=== PATIENT | male | born 1960 | race Caucasian/White ===

== ENCOUNTER 2017-04-27 07:48 | Outpatient (CLI) | payer BC ==
--- NOTE | 2017-04-27 09:53 | CT ---
EXAM: LOW DOSE SCREENING LUNG CT: COMPARISON: 12/29/15. HISTORY: Pulmonary nodule screening. Followup nodule from last year. TECHNIQUE: Low-dose screening CT is performed in the axial plane. Images are obtained following institution pro tocol. Coronal reformatted images are submitted for interpretation. FINDINGS: Lung screening specific (Lung RADS): Negative. Minor findings not suspicious for primary lung cancer . There is a stable 2 mm nodule in the left lower lobe. Potential significant incidentals (Lung RADS category S): None. Pulmonary incidentals: A 2 mm nodule in the left lower lobe. This is not suspicious for cancer. Other incidentals: None. IMPRESSION: 1. Lung RADS category 2: negative, benign findings without evidence of malignancy. 2. Lung RADS category S: negative. 3. Followup imaging in 12 months is recommended. Annual screening repeat low-dose CT should be perf ormed. POS: KEISHA
== END 2017-04-27 07:49 | disposition home or self-care (01) ==
LOC: CT 07:48
PROVIDERS: ATTEND Family Medicine
DX: R91.1 Solitary pulmonary nodule (principal); Z87.891 Personal history of nicotine dependence
CPT/HCPCS: G0297

== ENCOUNTER 2017-09-22 16:47 | Outpatient (CLI) | payer BC ==
[2017-09-22 17:10] LABS: Hemoglobin 15.5 g/dL (14.0-18.0); Mean Corpuscular HGB CONC 33.9 g/dL (32.0-36.0); Mean Corpuscular Hemoglobin 30.2 pg (27.0-31.0); Mean Corpuscular Volume 88.8 fl (80.0-94.0); Platelet Count 270 thou/uL (130-400); RBC Distribution Width 12.2 % (11.5-14.5); Red Blood Cell (RBC) Count 5.14 mill/uL (4.70-6.10); White Blood Cell (WBC) Count 8.9 thou/uL (4.8-10.8)
[2017-09-22 17:14] LABS: INR-International Normal Ratio 1.2; PTT 35.1 SEC (22.9-36.1)
[2017-09-22 17:27] LABS: ALT (SGPT) 30 U/L (8-55); AST (SGOT) 23 U/L (5-34); Albumin 4.8 g/dL (3.5-5.0); Alkaline Phosphatase 65 U/L (40-150); Anion Gap 13 mmol/L (10-20); BUN (Urea Nitrogen) 14 mg/dL (8.4-25.7); Bilirubin, Total 0.9 mg/dL (0.2-1.2); Calc. Creatinine Clearance 0 mL/min (70-130); Carbon Dioxide 24 mmol/L (22-29); Chloride 105 mmol/L (98-107); Estimated GFR-MDRD 40; Globulin 2.8 g/dL (2.4-3.5); Glucose 100 mg/dL (70-105); Potassium 4.1 mmol/L (3.5-5.1); Protein, Total 7.6 g/dL (6.0-8.3); Sodium 138 mmol/L (136-145)
== END 2017-09-22 16:48 | disposition home or self-care (01) ==
LOC: LABBT 16:47
PROVIDERS: ATTEND Internal Medicine Cardiovascular Disease
DX: Z01.818 Encounter for other preprocedural examination (principal); R06.02 Shortness of breath; R07.9 Chest pain, unspecified
CPT/HCPCS: 80053; 85027; 85610; 85730; 93005; 93010

== ENCOUNTER 2017-09-27 06:16 | Day surgery (SDC) | payer BC ==
[2017-09-22 17:04] VITALS: BMI 27.3
[2017-09-27] MEDS ORDERED: Lidocaine 1% (PF) 30 ML VIAL ONE (06:35)
[2017-09-27] MEDS ORDERED: Diazepam 5 MG TAB ONE (07:22)
[2017-09-27 07:47] LABS: Anion Gap 11 mmol/L (10-20); BUN (Urea Nitrogen) 16 mg/dL (8.4-25.7); Calc. Creatinine Clearance 67 mL/min (70-130); Calcium 8.8 mg/dL (7.8-10.44); Carbon Dioxide 23 mmol/L (22-29); Cardiac Risk 6.3 (Less than 4.5); Chloride 107 mmol/L (98-107); Cholesterol 169 mg/dl (< 200 Desired); Estimated GFR-MDRD 45; Glucose 94 mg/dL (70-105); HDL Cholesterol 27 mg/dL (>60 Neg Risk); LDL Cholesterol, Calculated 114 mg/dL; Sodium 137 mmol/L (136-145); Triglycerides 141 mg/dL (Less than 150)
[2017-09-27] MEDS ORDERED: Heparin 10,000 UNITS/1 ML VIAL ONE (08:16)
[2017-09-27] MEDS ORDERED: Verapamil 5 MG/2 ML VIAL ONE (08:16)
[2017-09-27] MEDS ORDERED: Nitroglycerin 100MG/250ML BOT 250 ML ONE (08:16)
[2017-09-27] MEDS ORDERED: Midazolam HCl 2 mg/2 ml Vial ONE (08:23)
[2017-09-27] MEDS ORDERED: Fentanyl 100 MCG/2 ML VIAL ONE (08:23)
[2017-09-27] MEDS ORDERED: Iopamidol 370 76% 100 ML VIAL ONE (11:17)
== END 2017-09-27 11:30 | disposition home or self-care (01) ==
LOC: CCL 06:16
PROVIDERS: ATTEND Internal Medicine Cardiovascular Disease
PROC: 4A023N7 Measurement of Cardiac Sampling and Pressure, Left Heart, Percutaneous Approach (ICD-10-PCS; principal; 2017-09-27)
PROC: B2111ZZ Fluoroscopy of Multiple Coronary Arteries using Low Osmolar Contrast (ICD-10-PCS; principal; 2017-09-27)
DX: I25.118 Atherosclerotic heart disease of native coronary artery with other forms of angina pectoris (principal); F17.210 Nicotine dependence, cigarettes, uncomplicated; I10 Essential (primary) hypertension; E78.5 Hyperlipidemia, unspecified; Z79.82 Long term (current) use of aspirin; Z79.899 Other long term (current) drug therapy
CPT/HCPCS: 36415; 80048; 80061; 93458; 99152; C1769; J1644; J2001; J2250; J3010

== ENCOUNTER 2017-10-17 07:56 | Outpatient (CLI) | payer BC | END 2017-10-17 07:57 | disposition home or self-care (01) | LOC: CP 07:56 | PROVIDERS: ATTEND Family Medicine | DX: R06.02 Shortness of breath (principal) | CPT/HCPCS: 94060; 94727 ==

== ENCOUNTER 2018-05-08 07:13 | Outpatient (CLI) | payer BC ==
--- NOTE | 2018-05-08 10:13 | CT ---
CT CHEST WITHOUT CONTRAST: HISTORY: Pulmonary nodule. Low dose cancer screening protocol. 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 COMPARISON: 04/27/2017, 12/29/2015 TECHNIQUE: Multiple contiguous axial images were obtained in a CT chest without contrast, per low dose cancer sc reening protocol. Sagittal and coronal reformats were performed. FINDINGS: There is a stable 2 mm nodule in the superior aspect of the left lower lobe on image 43 of 70. No ot her pulmonary nodules are seen. No focal infiltrates are seen. No pneumothorax or pleural effusion is seen. The heart is normal in size without focal cardiac abnormality. No hilar or mediastinal lymphadenopat hy is seen. The visualized subdiaphragmatic structures and chest wall soft tissues are unremarkable. The bones a re unremarkable. IMPRESSION: Lung-RADS category 2-Benign. CODE LN POS: KEISHA
== END 2018-05-08 07:14 | disposition home or self-care (01) ==
LOC: CT 07:13
PROVIDERS: ATTEND Family Medicine
DX: Z87.891 Personal history of nicotine dependence (principal); R91.1 Solitary pulmonary nodule
CPT/HCPCS: G0297

== ENCOUNTER 2019-11-18 07:38 | Outpatient (CLI) | payer BC ==
--- NOTE | 2019-11-18 08:38 | CT ---
CT pulmonary lung scan without IV contrast INDICATION: Lung cancer screening protocol; follow-up pulmonary nodule; former smoker for 30 years; s moked 1 pack per day; stop smoking 10 years ago;history of asthma COMPARISON: CT pulmonary lung scan dated May 08, 2018 FINDINGS: LUNGS: Nodules\mass: No suspicious nodule demonstrated. Small 2 mm nodule is calcified in the left lower lob e on image 176 of series 2 consistent with a small granuloma. Emphysema: Mild scattered emphysema is stable. Additional findings: None. Mediastinum: No lymphadenopathy. Upper abdomen: No abnormality. Osseous structures: No acute abnormality.. IMPRESSION: Lung-RADS Category 2: Benign- Continue annual screening with LDCT in 12 months Category S: Mild emphysema. Findings of prior granulomatous disease. Category C: Not applicable.
== END 2019-11-18 07:39 | disposition home or self-care (01) ==
LOC: CT 07:38
PROVIDERS: ATTEND Family Medicine
DX: Z12.2 Encounter for screening for malignant neoplasm of respiratory organs (principal); Z87.891 Personal history of nicotine dependence; R91.1 Solitary pulmonary nodule; J43.9 Emphysema, unspecified
CPT/HCPCS: G0297

== ENCOUNTER 2021-04-04 06:20 | Emergency (ER) | payer BC, SELFPAY ==
[2021-04-04 07:01] LABS: #Basophils 0.1 thou/uL (0.0-0.2); #Eosinphils 0.1 thou/uL (0.0-0.7); #Lymphocytes 1.3 thou/uL (1.20-3.40); #Monocytes 0.4 thou/uL (0.11-0.59); #Neutrophils 7.1 thou/uL (1.40-6.50); %Basophils 0.7 % (0.0-1.0); %Eosinophils 1.6 % (0.0-10.0); %Lymphocytes 13.8 % (21.0-51.0); %Monocytes 4.9 % (0.0-10.0); Hemoglobin 16.4 g/dL (14.0-18.0); Mean Corpuscular HGB CONC 33.4 g/dL (32.0-36.0); Mean Corpuscular Hemoglobin 31.1 pg (27.0-31.0); Platelet Count 222 thou/uL (130-400); RBC Distribution Width 12.2 % (11.5-14.5); Red Blood Cell (RBC) Count 5.27 mill/uL (4.70-6.10)
[2021-04-04 07:22] LABS: ALT (SGPT) 28 U/L (8-55); AST (SGOT) 27 U/L (5-34); Albumin 4.3 g/dL (3.5-5.0); Alkaline Phosphatase 53 U/L (40-110); Anion Gap 13 mmol/L (10-20); BUN (Urea Nitrogen) 21 mg/dL (8.4-25.7); Bilirubin, Total 0.7 mg/dL (0.2-1.2); Calc. Creatinine Clearance 0 mL/min (70-130); Carbon Dioxide 24 mmol/L (22-29); Chloride 106 mmol/L (98-107); Globulin 2.8 g/dL (2.4-3.5); Glucose 165 mg/dL (70-105); Lipase 55 U/L (8-78); Potassium 4.3 mmol/L (3.5-5.1); Protein, Total 7.1 g/dL (6.0-8.3); Sodium 139 mmol/L (136-145)
[2021-04-04 10:17] LABS: Clarity Cloudy (Clear); Glucose, Urine (Dipstick) Unable to Interpret mg/dL (Negative); Ketone, Urine Unable to Interpret mg/dL (Negative); Leukocyte Unable to Interpret Leu/uL (Negative); Nitrite Unable to Interpret (Negative); Protein, Urine (Dipstick) Unable to Interpret mg/dL (Neg-Trace); Specific Gravity, Urine 1.013 (1.002-1.036); pH, Urine 6.3 (5.0-9.0)
[2021-04-04 10:18] LABS: Bacteria/HPF Rare-Few HPF (None Seen); Bilirubin Unable to Interpret (Negative); Blood, Urine Unable to Interpret (Negative); RBC/HPF Greater than 50 HPF (0-3); Squamous Epithelial 0-3 HPF (0-3); Urobilinogen UNABLE TO INTERPRET mg/dL (Less than 2); WBC/HPF 0-3 HPF (0-3)
[2021-04-04] MEDS ORDERED: Lidocaine 2% PF 5 ML VIAL ONE (10:26)
== END 2021-04-04 11:10 | disposition home or self-care (01) ==
LOC: ERS 06:20
DX: N17.9 Acute kidney failure, unspecified (principal); F17.290 Nicotine dependence, other tobacco product, uncomplicated
CPT/HCPCS: 36415; 51702; 80053; 81003; 81015; 83690; 85025; J2001

== ENCOUNTER 2021-05-12 04:06 | Inpatient (IN) | payer OTHER, SELFPAY ==
[2021-05-12 05:20] LABS: Hemoglobin 15.8 g/dL (14.0-18.0); Mean Corpuscular HGB CONC 34.5 g/dL (32.0-36.0); Mean Corpuscular Hemoglobin 31.1 pg (27.0-31.0); Mean Corpuscular Volume 90.2 fL (78.0-98.0); Mean Platelet Volume 8.1 fL (7.4-10.4); Platelet Count 228 thou/uL (130-400); RBC Distribution Width 11.7 % (11.5-14.5); Red Blood Cell (RBC) Count 5.09 mill/uL (4.70-6.10); White Blood Cell (WBC) Count 20.5 thou/uL (4.8-10.8)
[2021-05-12 05:32] LABS: ALT (SGPT) 25 U/L (8-55); AST (SGOT) 22 U/L (5-34); Albumin 4.4 g/dL (3.5-5.0); Alkaline Phosphatase 48 U/L (40-110); Anion Gap 12 mmol/L (10-20); BUN (Urea Nitrogen) 19 mg/dL (8.4-25.7); Bilirubin, Total 0.9 mg/dL (0.2-1.2); Calc. Creatinine Clearance 0 mL/min (70-130); Carbon Dioxide 23 mmol/L (22-29); Chloride 103 mmol/L (98-107); Globulin 2.8 g/dL (2.4-3.5); Glucose 123 mg/dL (70-105); Lipase 44 U/L (8-78); Magnesium 1.6 mg/dL (1.6-2.6); Potassium 4.1 mmol/L (3.5-5.1); Protein, Total 7.2 g/dL (6.0-8.3); Sodium 134 mmol/L (136-145)
[2021-05-12 05:44] LABS: Band 35 % (5-11); Lymphocytes 5 % (21-51); MDiff Complete? YES; Monocytes 7 % (0-10); Neutrophil 53 % (42-75); Platelet Morphology Comment Appears Adequate; RBC Morphology Normal
[2021-05-12] MEDS ORDERED: Morphine 4 MG/ML VIAL ONE ×2 (05:48→09:35)
[2021-05-12] MEDS ORDERED: Ketorolac Tromethamine 30 MG/ML VIAL ONE (05:49)
[2021-05-12] MEDS ORDERED: Vancomycin 1 GM/200 ML BAG ONE (07:05)
[2021-05-12 07:45] LABS: Bacteria/HPF 2+ HPF (None Seen); Bilirubin Negative (Negative); Blood, Urine 3+ (Negative); Clarity Turbid (Clear); Glucose, Urine (Dipstick) Normal (Negative); Ketone, Urine Negative (Negative); Leukocyte 500 Leu/uL (Negative); Nitrite 2+ (Negative); Protein, Urine (Dipstick) 30 mg/dL (Neg-Trace); RBC/HPF Greater than 50 HPF (0-3); Specific Gravity, Urine 1.018 (1.002-1.036); Squamous Epithelial None Seen HPF (0-3); Urobilinogen Normal mg/dL (Less than 2); WBC/HPF Greater than 50 HPF (0-3)
[2021-05-12] MEDS ORDERED: cefTRIAXone\\ROCEPHIN 1 GM VIAL ONE (08:02)
[2021-05-12 11:57] LABS: SARS-CoV-2 NAA Rapid Test Not Detected (NotDetected)
[2021-05-12 13:14] VITALS: BMI 27.7
[2021-05-12] MEDS ORDERED: Sodium Chloride 0.9% 1,000 ML IV SCH (13:15)
[2021-05-12] MEDS ORDERED: Vancomycin 1 GM in Premix Bag 1 BAG IVPB SCH (16:00)
[2021-05-12] MEDS ORDERED: cefTRIAXone\\ROCEPHIN 1 GM in Sodium Chloride 0.9% 100 ML IVPB SCH (18:00)
[2021-05-12] MEDS: Acetaminophen 325 MG TAB PO PRN (21:05)
[2021-05-13] MEDS: Sodium Chloride 0.9% 1,000 ML IV SCH ×4 (01:08→16:09)
[2021-05-13] MEDS: Acetaminophen 325 MG TAB PO PRN ×3 (05:36→16:58)
[2021-05-13] MEDS ORDERED: Meropenem 1 GM in Sodium Chloride 0.9% 100 ML IVPB SCH (09:00)
[2021-05-13] MEDS ORDERED: Vancomycin 1.5 GRAM/300 ML BAG 1.5 GM in Premix Bag 1 BAG IVPB SCH (09:00)
[2021-05-13] MEDS: Fenofibrate Nanocrystallized 145 MG TAB PO SCH (09:53)
[2021-05-13] MEDS: Meropenem 1 GM in Sodium Chloride 0.9% 100 ML IVPB SCH (16:58)
[2021-05-13] MEDS ORDERED: Meropenem 500 MG in Sodium Chloride 0.9% 100 ML IVPB SCH (17:00)
[2021-05-13] MEDS: Senokot S 8.6-50 MG TAB PO SCH (20:42)
[2021-05-13] MEDS: HYDROcodone/Acetaminophen 5/325 mg Tablet PO PRN (20:43)
[2021-05-13] MEDS: Ondansetron PF 4 MG/2 ML Vial IVP PRN (20:44)
[2021-05-14] MEDS: Sodium Chloride 0.9% 1,000 ML IV SCH ×3 (02:00→12:44)
[2021-05-14] MEDS: Acetaminophen 325 MG TAB PO PRN (05:03)
[2021-05-14] MEDS: Meropenem 1 GM in Sodium Chloride 0.9% 100 ML IVPB SCH ×2 (05:04→16:50)
[2021-05-14] MEDS: Levothyroxine Sodium 88 MCG TAB PO SCH (05:04)
[2021-05-14 07:07] LABS: #Eosinphils 0.1 thou/uL (0.0-0.7); #Lymphocytes 1.4 thou/uL (1.20-3.40); #Monocytes 1.1 thou/uL (0.11-0.59); %Basophils 0.3 % (0.0-1.0); %Eosinophils 0.5 % (0.0-10.0); %Lymphocytes 7.9 % (21.0-51.0); %Monocytes 6.1 % (0.0-10.0); %Neutrophils 85.2 % (42.0-75.0); Hemoglobin 12.6 g/dL (14.0-18.0); Mean Corpuscular HGB CONC 33.3 g/dL (32.0-36.0); Mean Corpuscular Hemoglobin 30.9 pg (27.0-31.0); Mean Corpuscular Volume 92.8 fL (78.0-98.0); Mean Platelet Volume 8.3 fL (7.4-10.4); Platelet Count 211 thou/uL (130-400); RBC Distribution Width 11.8 % (11.5-14.5); Red Blood Cell (RBC) Count 4.09 mill/uL (4.70-6.10); White Blood Cell (WBC) Count 17.6 thou/uL (4.8-10.8)
[2021-05-14 07:29] LABS: Anion Gap 10 mmol/L (10-20); Calcium 8.8 mg/dL (7.8-10.44); Carbon Dioxide 21 mmol/L (22-29); Chloride 106 mmol/L (98-107); Glucose 104 mg/dL (70-105); Potassium 3.6 mmol/L (3.5-5.1); Sodium 133 mmol/L (136-145)
[2021-05-14 07:34] LABS: Calc. Creatinine Clearance 69 mL/min (70-130)
[2021-05-14 07:35] LABS: BUN (Urea Nitrogen) 13 mg/dL (8.4-25.7)
[2021-05-14] MEDS: Ondansetron PF 4 MG/2 ML Vial IVP PRN (08:45)
[2021-05-14] MEDS: Fenofibrate Nanocrystallized 145 MG TAB PO SCH (10:23)
[2021-05-14] MEDS: Senokot S 8.6-50 MG TAB PO SCH ×2 (10:24→20:56)
[2021-05-15] MEDS: Acetaminophen 325 MG TAB PO PRN (04:12)
[2021-05-15] MEDS: Meropenem 1 GM in Sodium Chloride 0.9% 100 ML IVPB SCH ×3 (04:14→17:52)
[2021-05-15] MEDS: Levothyroxine Sodium 88 MCG TAB PO SCH (05:31)
[2021-05-15 06:22] LABS: #Eosinphils 0.1 thou/uL (0.0-0.7); #Lymphocytes 1.5 thou/uL (1.20-3.40); #Monocytes 1.1 thou/uL (0.11-0.59); #Neutrophils 10.3 thou/uL (1.40-6.50); %Basophils 0.3 % (0.0-1.0); %Eosinophils 0.4 % (0.0-10.0); %Lymphocytes 11.7 % (21.0-51.0); %Monocytes 8.2 % (0.0-10.0); %Neutrophils 79.4 % (42.0-75.0); Mean Corpuscular HGB CONC 34.1 g/dL (32.0-36.0); Mean Corpuscular Hemoglobin 31.1 pg (27.0-31.0); Mean Corpuscular Volume 91.1 fL (78.0-98.0); Mean Platelet Volume 8.2 fL (7.4-10.4); Platelet Count 247 thou/uL (130-400); RBC Distribution Width 11.6 % (11.5-14.5); Red Blood Cell (RBC) Count 4.17 mill/uL (4.70-6.10)
[2021-05-15 06:50] LABS: Anion Gap 12 mmol/L (10-20); BUN (Urea Nitrogen) 12 mg/dL (8.4-25.7); Calc. Creatinine Clearance 77 mL/min (70-130); Calcium 9.1 mg/dL (7.8-10.44); Carbon Dioxide 21 mmol/L (22-29); Chloride 108 mmol/L (98-107); Glucose 101 mg/dL (70-105); Potassium 3.5 mmol/L (3.5-5.1); Sodium 137 mmol/L (136-145)
[2021-05-15] MEDS: Ondansetron PF 4 MG/2 ML Vial IVP PRN (08:20)
[2021-05-15] MEDS: HYDROcodone/Acetaminophen 5/325 mg Tablet PO PRN (08:26)
[2021-05-15] MEDS: Fenofibrate Nanocrystallized 145 MG TAB PO SCH (08:27)
[2021-05-15] MEDS: Senokot S 8.6-50 MG TAB PO SCH ×2 (08:28→20:33)
[2021-05-15] MEDS ORDERED: Fioricet 325/50/40 mg Tablet PO SCH (09:45)
[2021-05-15] MEDS ORDERED: Fluticasone Propionate Nasal Spray 16 gm Bottle NASAL SCH (10:15)
[2021-05-15] MEDS ORDERED: Loratadine 10 MG TAB PO SCH (10:15)
[2021-05-15] MEDS: Fioricet 325/50/40 mg Tablet PO PRN ×2 (16:57→20:35)
[2021-05-15] MEDS: Fluticasone Propionate Nasal Spray 16 gm Bottle NASAL SCH (20:38)
[2021-05-16] MEDS: Levothyroxine Sodium 88 MCG TAB PO SCH (05:05)
[2021-05-16] MEDS: Meropenem 1 GM in Sodium Chloride 0.9% 100 ML IVPB SCH ×2 (05:05→16:49)
[2021-05-16] MEDS: Fioricet 325/50/40 mg Tablet PO PRN ×3 (05:06→20:28)
[2021-05-16 07:43] LABS: #Basophils 0.1 thou/uL (0.0-0.2); #Eosinphils 0.1 thou/uL (0.0-0.7); #Lymphocytes 1.9 thou/uL (1.20-3.40); #Monocytes 0.9 thou/uL (0.11-0.59); #Neutrophils 6.6 thou/uL (1.40-6.50); %Basophils 0.8 % (0.0-1.0); %Eosinophils 1.1 % (0.0-10.0); %Lymphocytes 19.7 % (21.0-51.0); %Monocytes 9.4 % (0.0-10.0); %Neutrophils 69.1 % (42.0-75.0); Hemoglobin 13.2 g/dL (14.0-18.0); Mean Corpuscular HGB CONC 33.4 g/dL (32.0-36.0); Mean Corpuscular Volume 92.9 fL (78.0-98.0); Platelet Count 278 thou/uL (130-400); RBC Distribution Width 11.9 % (11.5-14.5); Red Blood Cell (RBC) Count 4.27 mill/uL (4.70-6.10); White Blood Cell (WBC) Count 9.5 thou/uL (4.8-10.8)
[2021-05-16] MEDS: Fenofibrate Nanocrystallized 145 MG TAB PO SCH (08:39)
[2021-05-16] MEDS: Loratadine 10 MG TAB PO SCH (08:39)
[2021-05-16] MEDS: Fluticasone Propionate Nasal Spray 16 gm Bottle NASAL SCH ×2 (08:39→20:29)
[2021-05-16] MEDS: Senokot S 8.6-50 MG TAB PO SCH ×2 (08:39→20:29)
[2021-05-16] MEDS: Lisinopril 10 MG TAB PO SCH (08:39)
[2021-05-17] MEDS: Meropenem 1 GM in Sodium Chloride 0.9% 100 ML IVPB SCH (06:17)
[2021-05-17] MEDS: Levothyroxine Sodium 88 MCG TAB PO SCH (06:17)
[2021-05-17] MEDS: Senokot S 8.6-50 MG TAB PO SCH (08:25)
[2021-05-17] MEDS: Fenofibrate Nanocrystallized 145 MG TAB PO SCH (08:25)
[2021-05-17] MEDS: Lisinopril 10 MG TAB PO SCH (08:25)
[2021-05-17] MEDS: Loratadine 10 MG TAB PO SCH (08:26)
[2021-05-17] MEDS: Fluticasone Propionate Nasal Spray 16 gm Bottle NASAL SCH (08:26)
[2021-05-17 08:28] VITALS: BP 132/76
[2021-05-17] MEDS ORDERED: Morphine 4 MG/ML VIAL SLOW IVP PRN (08:37)
[2021-05-17 08:39] VITALS: TEMP 97.9
[2021-05-17 08:53] LABS: Anion Gap 11 mmol/L (10-20); BUN (Urea Nitrogen) 12 mg/dL (8.4-25.7); Calc. Creatinine Clearance 77 mL/min (70-130); Calcium 9.5 mg/dL (7.8-10.44); Carbon Dioxide 27 mmol/L (22-29); Chloride 107 mmol/L (98-107); Glucose 114 mg/dL (70-105); Potassium 3.7 mmol/L (3.5-5.1); Sodium 141 mmol/L (136-145)
== END 2021-05-17 12:14 | disposition home or self-care (01) | DRG 698 ==
LOC: ERS 04:06 → ERHOLD 07:56 → T4-A 12:50
PROVIDERS: ADMIT Family Medicine; ATTEND Family Medicine
PROC: 0T7D8ZZ Dilation of Urethra, Via Natural or Artificial Opening Endoscopic (ICD-10-PCS; principal; 2021-05-17)
DX: T83.510A Infection and inflammatory reaction due to cystostomy catheter, initial encounter (principal); A41.52 Sepsis due to Pseudomonas; N10 Acute pyelonephritis; N13.8 Other obstructive and reflux uropathy; Z20.822 Contact with and (suspected) exposure to COVID-19; I10 Essential (primary) hypertension; E03.9 Hypothyroidism, unspecified; J45.909 Unspecified asthma, uncomplicated; N13.9 Obstructive and reflux uropathy, unspecified; N40.1 Benign prostatic hyperplasia with lower urinary tract symptoms; R09.81 Nasal congestion; Z79.890 Hormone replacement therapy; Z79.899 Other long term (current) drug therapy; Z79.51 Long term (current) use of inhaled steroids
CPT/HCPCS: 36415; 74176; 80048; 80053; 81003; 81015; 83605; 83690; 83735; 85025; 87040; 87077; 87086; 87149; 87186; 94640; 96365; 96367; 96375; 96376; J0696; J1885; J2185; J2270; J2405; J3370; J3490; J7050; J7620; U0002

== ENCOUNTER 2021-05-20 11:32 | Outpatient (CLI) | payer SELFPAY, OTHER ==
[2021-05-20 22:43] LABS: SARS-CoV-2 PCR by NAA Not Detected (NotDetected)
== END 2021-05-20 11:33 | disposition home or self-care (01) ==
LOC: LABBT 11:32
PROVIDERS: ATTEND Urology
DX: Z01.818 Encounter for other preprocedural examination (principal); Z20.822 Contact with and (suspected) exposure to COVID-19
CPT/HCPCS: 93005; 93010; U0003; U0005

== ENCOUNTER 2021-05-25 09:00 | Day surgery (SDC) | payer OTHER ==
[2021-05-20 12:51] VITALS: BMI 26.7
[2021-05-25] MEDS ORDERED: Levofloxacin 500 mg/D5W 100 ml Premix Bag ONE (09:15)
[2021-05-25] MEDS ORDERED: Triamcinolone 40 MG/ML VIAL ONE (10:04)
[2021-05-25] MEDS ORDERED: Iothalamate Meglumine 60% 50 ML VIAL FS ONE (10:04)
[2021-05-25] MEDS ORDERED: Fentanyl 100 MCG/2 ML VIAL ONE (10:05)
[2021-05-25] MEDS ORDERED: Lidocaine 1% PF 5 ML VIAL ONE (10:13)
[2021-05-25] MEDS ORDERED: Phenylephrine 10 MG/ML VIAL ONE (10:13)
[2021-05-25] MEDS ORDERED: Dexamethasone 20 MG/5 ML VIAL ONE (10:13)
[2021-05-25] MEDS ORDERED: Ondansetron PF 4 MG/2 ML Vial ONE (10:13)
[2021-05-25] MEDS ORDERED: PROPOFOL 200 MG/20 ML VIAL ONE (10:13)
[2021-05-25] MEDS ORDERED: Oxybutynin 5 MG TAB ONE (12:16)
[2021-05-25] MEDS ORDERED: Phenazopyridine HCl 100 MG TAB ONE (12:16)
[2021-05-25] MEDS ORDERED: Ketorolac Tromethamine 30 MG/ML VIAL ONE (12:16)
== END 2021-05-25 13:04 | disposition home or self-care (01) ==
LOC: SDC 09:00
PROVIDERS: ATTEND Urology
PROC: 0TCB8ZZ Extirpation of Matter from Bladder, Via Natural or Artificial Opening Endoscopic (ICD-10-PCS; principal; 2021-05-25)
PROC: 3E0K83Z Introduction of Anti-inflammatory into Genitourinary Tract, Via Natural or Artificial Opening Endoscopic (ICD-10-PCS; principal; 2021-05-25)
PROC: 0TND8ZZ Release Urethra, Via Natural or Artificial Opening Endoscopic (ICD-10-PCS; principal; 2021-05-25)
DX: N35.912 Unspecified bulbous urethral stricture, male (principal); N21.0 Calculus in bladder; N32.89 Other specified disorders of bladder; I12.9 Hypertensive chronic kidney disease with stage 1 through stage 4 chronic kidney disease, or unspecified chronic kidney disease; N18.2 Chronic kidney disease, stage 2 (mild); E78.00 Pure hypercholesterolemia, unspecified; E03.9 Hypothyroidism, unspecified; E55.9 Vitamin D deficiency, unspecified; J45.909 Unspecified asthma, uncomplicated; F17.290 Nicotine dependence, other tobacco product, uncomplicated; N40.1 Benign prostatic hyperplasia with lower urinary tract symptoms; R33.8 Other retention of urine; Z79.2 Long term (current) use of antibiotics; Z79.899 Other long term (current) drug therapy
CPT/HCPCS: J1100; J1885; J1956; J2370; J2405; J2704; J3010; J3301; Q9961-U8

== ENCOUNTER 2021-06-12 02:58 | Emergency (ER) | payer BC, OTHER ==
[2021-06-12 03:35] LABS: #Basophils 0.1 thou/uL (0.0-0.2); #Eosinphils 0.3 thou/uL (0.0-0.7); #Lymphocytes 2.6 thou/uL (1.20-3.40); #Monocytes 0.6 thou/uL (0.11-0.59); #Neutrophils 4.6 thou/uL (1.40-6.50); %Basophils 0.8 % (0.0-1.0); %Eosinophils 4.2 % (0.0-10.0); %Lymphocytes 31.5 % (21.0-51.0); %Monocytes 7.8 % (0.0-10.0); %Neutrophils 55.7 % (42.0-75.0); Hemoglobin 15.4 g/dL (14.0-18.0); Mean Corpuscular HGB CONC 33.3 g/dL (32.0-36.0); Mean Corpuscular Hemoglobin 30.6 pg (27.0-31.0); Mean Corpuscular Volume 91.8 fL (78.0-98.0); Mean Platelet Volume 8.4 fL (7.4-10.4); Platelet Count 209 thou/uL (130-400); Red Blood Cell (RBC) Count 5.02 mill/uL (4.70-6.10); White Blood Cell (WBC) Count 8.2 thou/uL (4.8-10.8)
[2021-06-12 03:51] LABS: ALT (SGPT) 28 U/L (8-55); AST (SGOT) 22 U/L (5-34); Albumin 4.1 g/dL (3.4-4.8); Alkaline Phosphatase 49 U/L (40-110); Anion Gap 14 mmol/L (10-20); BUN (Urea Nitrogen) 24 mg/dL (8.4-25.7); Bilirubin, Total 0.6 mg/dL (0.2-1.2); Calc. Creatinine Clearance 0 mL/min (70-130); Calcium 9.7 mg/dL (7.8-10.44); Carbon Dioxide 21 mmol/L (23-31); Chloride 105 mmol/L (98-107); Globulin 2.9 g/dL (2.4-3.5); Glucose 129 mg/dL (80-115); Potassium 4.1 mmol/L (3.5-5.1); Sodium 136 mmol/L (136-145)
[2021-06-12 06:30] LABS: Troponin I Less than 0.010 ng/mL (< 0.028)
== END 2021-06-12 06:45 | disposition home or self-care (01) ==
LOC: ERS 02:58
DX: R07.89 Other chest pain (principal); E78.00 Pure hypercholesterolemia, unspecified; I10 Essential (primary) hypertension; F17.290 Nicotine dependence, other tobacco product, uncomplicated; Z79.899 Other long term (current) drug therapy
CPT/HCPCS: 36415; 71045; 80053; 84484; 85025; 93005

== ENCOUNTER 2021-07-07 13:11 | Outpatient (CLI) | payer BC | END 2021-07-07 13:12 | disposition home or self-care (01) | LOC: BICCT 13:11 | PROVIDERS: ATTEND Family Medicine | DX: Z12.2 Encounter for screening for malignant neoplasm of respiratory organs (principal); Z87.891 Personal history of nicotine dependence | CPT/HCPCS: 71271 ==

== ENCOUNTER 2021-07-26 13:36 | Outpatient (CLI) | payer BC ==
[2021-07-26 16:00] LABS: Hemoglobin 15.4 g/dL (13.5-17.5); Mean Corpuscular Hemoglobin 29.8 pg (27.0-33.0); Mean Corpuscular Volume 90.3 fl (81.2-95.1); Mean Platelet Volume 11.4 fl (7.4-10.4); Platelet Count 310 10x3/uL (150-450); RBC Distribution Width 13.9 % (11.5-14.5); Red Blood Cell (RBC) Count 5.16 10x6/uL (4.32-5.72); White Blood Cell (WBC) Count 6.5 10x3/uL (3.5-10.5)
[2021-07-26 16:04] LABS: Bilirubin Neg (Negative); Blood, Urine Negative (Negative); Clarity Clear (Clear); Glucose, Urine (Dipstick) Normal (Negative); Ketone, Urine Negative (Negative); Leukocyte 100 (Negative); Nitrite Negative (Negative); Protein, Urine (Dipstick) Negative (Neg-Trace); Urobilinogen Normal mg/dL (Less than 2)
[2021-07-26 16:25] LABS: RBC/HPF 0-3 HPF (0-3)
[2021-07-26 16:26] LABS: Squamous Epithelial 0-3 HPF (0-3)
[2021-07-26 16:27] LABS: Bacteria/HPF 2+ HPF (None Seen); Mucous/LPF 1+ LPF (<2+)
[2021-07-26 16:32] LABS: Anion Gap 15 mmol/L (10-20); BUN (Urea Nitrogen) 12 mg/dL (8.4-25.7); Calc. Creatinine Clearance 0 mL/min (70-130); Calcium 9.8 mg/dL (7.8-10.44); Carbon Dioxide 24 mmol/L (23-31); Chloride 104 mmol/L (98-107); Glucose 92 mg/dL (80-115); Potassium 4.3 mmol/L (3.5-5.1); Sodium 139 mmol/L (136-145)
[2021-07-26 23:37] LABS: SARS-CoV-2 PCR by NAA Not Detected (NotDetected)
== END 2021-07-26 13:37 | disposition home or self-care (01) ==
LOC: LABBT 13:36
PROVIDERS: ATTEND Urology
DX: Z01.818 Encounter for other preprocedural examination (principal); N35.912 Unspecified bulbous urethral stricture, male; Z20.822 Contact with and (suspected) exposure to COVID-19
CPT/HCPCS: 80048; 81001; 85027; 87086; 93005; 93010; U0003; U0005

== ENCOUNTER 2023-10-24 09:45 | Outpatient (CLI) | payer BC ==
[2023-10-24 11:41] LABS: #Basophils 0.07 10x3/uL (0.0-0.2); #Monocytes 0.52 10x3/uL (0.0-1.1); #Neutrophils 3.49 10x3/uL (1.5-8.4); %Basophils 1.2 % (0.0-2.0); %Eosinophils 3.3 % (0.0-6.0); %Lymphocytes 28.6 % (18.0-47.0); %Monocytes 8.6 % (0.0-10.0); %Neutrophils 57.6 % (40.0-75.0); Hemoglobin 16.5 g/dL (13.5-17.5); Mean Corpuscular HGB CONC 34.4 g/dL (32.0-36.0); Mean Corpuscular Hemoglobin 30.3 pg (27.0-33.0); Mean Corpuscular Volume 88.2 fl (81.2-95.1); Mean Platelet Volume 10.8 fl (7.4-10.4); Platelet Count 316 10x3/uL (150-450); RBC Distribution Width 13.5 % (11.5-14.5); Red Blood Cell (RBC) Count 5.44 10x6/uL (4.32-5.72); White Blood Cell (WBC) Count 6.1 10x3/uL (3.5-10.5)
[2023-10-24 12:12] LABS: ALT (SGPT) 36 U/L (8-55); AST (SGOT) 34 U/L (5-34); AST (SGOT) 35 U/L (5-34); Albumin 4.3 g/dL (3.4-4.8); Alkaline Phosphatase 57 U/L (40-110); Alkaline Phosphatase 58 U/L (40-110); Anion Gap 15 mmol/L (10-20); BUN (Urea Nitrogen) 19 mg/dL (8.4-25.7); Bilirubin, Direct 0.2 mg/dL (0.1-0.3); Bilirubin, Total 0.6 mg/dL (0.2-1.2); Calc. Creatinine Clearance 0 mL/min (70-130); Carbon Dioxide 21 mmol/L (23-31); Chloride 108 mmol/L (98-107); Estimated GFR 43; Globulin 3.1 g/dL (2.4-3.5); Glucose 128 mg/dL (80-115); Potassium 4.7 mmol/L (3.5-5.1); Protein, Total 7.4 g/dL (5.8-8.1); Sodium 139 mmol/L (136-145)
== END 2023-10-24 09:46 | disposition home or self-care (01) ==
LOC: LABBT 09:45
PROVIDERS: ATTEND Surgery
DX: Z01.818 Encounter for other preprocedural examination (principal); K43.9 Ventral hernia without obstruction or gangrene
CPT/HCPCS: 80053; 85025; 85730; 93005; 93010

== ENCOUNTER 2023-11-06 04:43 | Emergency (ER) | payer BC ==
[2023-11-06] MEDS ORDERED: Cefepime 2 GM VIAL ONE (05:36)
[2023-11-06 05:57] LABS: #Basophils 0.06 10x3/uL (0.0-0.2); %Basophils 0.8 % (0.0-1.0); %Eosinophils 4.5 % (0.0-10.0); %Monocytes 9.4 % (0.0-10.0); %Neutrophils 58.5 % (42.0-75.0); Hematocrit 50.9 % (42.0-52.0); Hemoglobin 17.4 g/dL (14.0-18.0); Mean Corpuscular HGB CONC 34.2 g/dL (32.0-36.0); Mean Corpuscular Hemoglobin 30.5 pg (27.0-31.0); Mean Corpuscular Volume 89.1 fL (78.0-98.0); Mean Platelet Volume 10.9 fL (7.4-10.4); Platelet Count 271 10x3/uL (130-400); RBC Distribution Width 13.1 % (11.5-14.5); Red Blood Cell (RBC) Count 5.71 mill/uL (4.70-6.10)
[2023-11-06] MEDS ORDERED: Vancomycin (BATCH) 2 GM in Premix 1 BAG IVPB SCH (06:00)
[2023-11-06 06:15] LABS: ALT (SGPT) 43 U/L (8-55); AST (SGOT) 34 U/L (5-34); Albumin 4.2 g/dL (3.4-4.8); Alkaline Phosphatase 57 U/L (40-110); Anion Gap 16 mmol/L (10-20); BUN (Urea Nitrogen) 20 mg/dL (8.4-25.7); Bilirubin, Total 0.5 mg/dL (0.2-1.2); Calc. Creatinine Clearance 0 mL/min (70-130); Calcium 10.4 mg/dL (7.8-10.44); Carbon Dioxide 22 mmol/L (23-31); Chloride 104 mmol/L (98-107); Estimated GFR 44; Globulin 3.6 g/dL (2.4-3.5); Glucose 147 mg/dL (80-115); Potassium 3.8 mmol/L (3.5-5.1); Protein, Total 7.8 g/dL (5.8-8.1); Sodium 138 mmol/L (136-145)
[2023-11-06] MEDS ORDERED: fentaNYL PF 100 MCG/2 ML SYRINGE ONE ×2 (09:08→11:33)
[2023-11-06] MEDS ORDERED: Lidocaine 1% PF 5 ML VIAL ONE (09:08)
[2023-11-06] MEDS ORDERED: Rocuronium Bromide 10 MG/ML (10ML VIAL) ONE (09:08)
[2023-11-06] MEDS ORDERED: PROPOFOL 20 ML ONE (09:08)
[2023-11-06] MEDS ORDERED: Bupivacaine 0.25% HCL 30 ML VIAL ONE (09:09)
[2023-11-06] MEDS ORDERED: EPINEPHrine 1 MG/ML VIAL ONE (09:09)
[2023-11-06] MEDS ORDERED: Promethazine HCl 25 MG/ML VIAL IM PRN (09:18)
[2023-11-06] MEDS ORDERED: Meperidine HCl/PF 25 MG/ML VIAL SLOW IVP PRN (09:18)
[2023-11-06] MEDS ORDERED: Ondansetron HCl/PF 4 MG/2 ML Vial IVP PRN (09:18)
[2023-11-06] MEDS ORDERED: Albuterol HFA (OR) 200 PUFF INH ONE (09:42)
[2023-11-06] MEDS ORDERED: Dexamethasone 20 MG/5 ML VIAL ONE (10:21)
[2023-11-06] MEDS ORDERED: ePHEDrine Sulfate 50 MG/10 ML VIAL ONE (10:40)
[2023-11-06] MEDS ORDERED: SUGAMMADEX SODIUM 200 MG/2 ML VIAL ONE (10:47)
[2023-11-06] MEDS ORDERED: Ondansetron PF 4 MG/2 ML Vial ONE (10:48)
[2023-11-06] MEDS ORDERED: HYDROcodone/Acetaminophen 5/325 mg Tablet ONE (12:41)
== END 2023-11-06 09:18 | disposition admitted as inpatient to this hospital (09) ==
LOC: ERS 04:43
PROC: 0W9F0ZZ Drainage of Abdominal Wall, Open Approach (ICD-10-PCS; principal; 2023-11-06)
PROC: 0WPF0JZ Removal of Synthetic Substitute from Abdominal Wall, Open Approach (ICD-10-PCS; 2023-11-06)
DX: T85.79XA Infection and inflammatory reaction due to other internal prosthetic devices, implants and grafts, initial encounter (principal); L02.211 Cutaneous abscess of abdominal wall; I10 Essential (primary) hypertension; E03.9 Hypothyroidism, unspecified; E78.00 Pure hypercholesterolemia, unspecified; Z87.891 Personal history of nicotine dependence; Z90.89 Acquired absence of other organs; Y73.8 Miscellaneous gastroenterology and urology devices associated with adverse incidents, not elsewhere classified
CPT/HCPCS: 36415; 80053; 83605; 85025; 87040; 87070; 87205; 88300; 93005; 96365; 96375; J0171; J0665; J0692; J1100; J2405; J2704; J3370

== ENCOUNTER 2025-02-14 11:44 | Outpatient (CLI) | payer BC ==
[2025-02-14 12:32] LABS: Estimated GFR - POC 42.0
[2025-02-14] MEDS ORDERED: Iopamidol 370 76% 100 ML VIAL ONE (15:30)
== END 2025-02-14 11:45 | disposition home or self-care (01) ==
LOC: CT 11:44
PROVIDERS: ATTEND Family Medicine
DX: K43.9 Ventral hernia without obstruction or gangrene (principal)
CPT/HCPCS: 36415; 74177; 82565; Q9967